=== PATIENT | female | born 1970 | race Caucasian/White ===

== ENCOUNTER 2017-07-19 18:34 | Inpatient (IN) | payer OTHER ==
[2017-07-19] MEDS ORDERED: Pantoprazole 80 MG in Sodium Chloride 0.9% 100 ML IV STA (19:14)
--- NOTE | 2017-07-19 19:14 | C.PDOC ---
History Of Present Illness Patient was sent in by PMD for abnormal blood work showing a a hemoglobin of 7. Denies chest pain, palpitations, SOB, or dark stools. Does state that she has had heavy menstrual flows. No cp, no palpitations, speaking in complete sentences Time Seen by Provider: 07/19/17 19:14 Chief Complaint (Nursing): Abnormal Labs History Per: Patient History/Exam Limitations: no limitations Onset/Duration Of Symptoms: Days Current Symptoms Are (Timing): Still Present Severity: Mild Pain Scale Rating Of: 3 Reports Recently: Treated By A Physician Recent travel outside of the [place]: No Additional History Per: Patient Past Medical History Reviewed: Historical Data, Nursing Documentation, Vital Signs Vital Signs: Last Vital Signs Temp 98.6 F 07/19/17 20:55 Pulse 87 07/19/17 18:45 Resp 18 07/19/17 18:45 BP 126/71 07/19/17 20:55 Pulse Ox 100 07/19/17 21:02 - Medical History PMH: Anemia Surgical History: No Surg Hx Family History: States: No Known Family Hx - Social History Hx Alcohol Use: No Hx Substance Use: No - Immunization History Hx Tetanus Toxoid Vaccination: No Hx Influenza Vaccination: No Hx Pneumococcal Vaccination: No Review Of Systems Constitutional: Negative for: Fever, Chills Eyes: Positive for: Other (pale) Cardiovascular: Negative for: Chest Pain, Palpitations Respiratory: Negative for: Shortness of Breath Gastrointestinal: Negative for: Nausea, Vomiting, Abdominal Pain, Other (Dark stools) Genitourinary: Positive for: Vaginal Bleeding (heavy, but not now) Musculoskeletal: Negative for: Back Pain Skin: Negative for: Rash Neurological: Negative for: Weakness Psych: Negative for: Anxiety Physical Exam - Physical Exam Appears: Non-toxic Skin: Warm, Dry, Pale Head: Normacephalic Eye(s): bilateral: Normal Inspection (pale) Oral Mucosa: Moist Neck: Supple Chest: Symmetrical Cardiovascular: Rhythm Regular Respiratory: No Rales, No Rhonchi, No Wheezing Gastrointestinal/Abdominal: Soft, No Tenderness Back: Normal Inspection Extremity: Normal ROM Extremity: Bilateral: Atraumatic, Normal ROM Pulses: Left Dorsalis Pedis: Normal, Right Dorsalis Pedis: Normal Neurological/Psych: Oriented x3, Normal Speech, Normal Cognition Gait: Steady ED Course And Treatment - Laboratory Results Result Diagrams: 07/19/17 19:26 07/19/17 19:26 O2 Sat by Pulse Oximetry: 100 Progress Note: Blood work and urinalysis ordered. Protonix administered. Disposition Discussed With Dr.: Tom Weeks Comment: accepted the pt on his service and took over the care at 10:35 PM Counseled Patient/Family Regarding: Studies Performed, Diagnosis - Disposition Disposition: HOSPITALIZED Disposition Time: 19:14 Condition: FAIR Forms: [facility] ([place]) - POA Present On Arrival: None - Clinical Impression Clinical Impression: Severe anemia, Menometrorrhagia - Scribe Statement The provider has reviewed the documentation as recorded by the Scribe David Martinez All medical record entries made by the Scribe were at my direction and personally dictated by me. I have reviewed the chart and agree that the record accurately reflects my personal performance of the history, physical exam, medical decision making, and the department course for this patient. I have also personally directed, reviewed, and agree with the discharge instructions and disposition. Decision To Admit - Pt Status Changed To: Hospital Disposition Of: Inpatient - Admit Certification Admit to Inpatient:: After my assessment, the patient will require hospitalization for at least two midnights. This is because of the severity of symptoms shown, intensity of services needed, and/or the medical risk in this patient being treated as an outpatient. - InPatient: Physician Admission Certification: I certify that this patient requires 2 or more midnights of care for the following reason:: After my assessment, the patient will require hospitalization for at least two midnights. This is because of the severity of symptoms shown, intensity of services needed, and/or the medical risk in this patient being treated as an outpatient. - . Bed Request Type: Regular Admitting Physician: Tom Weeks Patient Diagnosis: Severe anemia, Menometrorrhagia
[2017-07-19 19:35] LABS: INR 1.1
[2017-07-19 19:44] LABS: ALB/GLOB RATIO 1.5 (1.0-2.1); ALKALINE PHOSPHATASE 37 U/L (38-126); ALT/SGPT 35 U/L (9-52); AST/SGOT 22 U/L (14-36); BILIRUBIN,TOTAL 0.5 mg/dL (0.2-1.3); BLOOD UREA NITROGEN 9 mg/dL (7-17); CALCIUM 9.5 mg/dl (8.6-10.4); CARBON DIOXIDE 29 mmol/L (22-30); CHLORIDE 105 mmol/L (98-107); GFR AFRICAN-AMERICAN > 60; GLUCOSE,RANDOM 110 mg/dL (65-105); POTASSIUM 4.3 mmol/L (3.6-5.2); SODIUM 141 mmol/L (132-148); TOTAL PROTEIN 7.2 g/dL (6.3-8.3)
[2017-07-19 19:59] LABS: EOS # 0.1 K/uL (0.0-0.7); EOS % 1.3 % (0.0-4.0); MONO # 0.6 K/uL (0.0-0.8)
[2017-07-19 20:04] LABS: BASO % 0.9 % (0.0-2.0); LYMPH # 1.8 K/uL (1.0-4.3); LYMPH % 33.1 % (20.0-40.0); MEAN CELL VOLUME 59.2 fL (81.0-99.0); MEAN CORPUSCULAR HEMOGLOBIN 16.4 pg (27.0-31.0); MEAN CORPUSCULAR HGB CONC 27.6 g/dL (33.0-37.0); MEAN PLATELET VOLUME 9.8 fL (7.2-11.7); MONO % 11.5 % (0.0-10.0); NRBC % 0.2 % (0.0-2.0); RED CELL DISTRIBUTION WIDTH 21.3 % (11.5-14.5); WHITE BLOOD COUNT 5.4 K/uL (4.8-10.8)
[2017-07-19 20:06] LABS: HEMATOCRIT 25.8 % (34.0-47.0)
[2017-07-19 20:09] LABS: RBC URINE 1 /hpf (0-3); URINE BACTERIA RARE (<OCC); URINE BILIRUBIN NEGATIVE (NEGATIVE); URINE BLOOD NEGATIVE (NEGATIVE); URINE COLOR Straw (YELLOW); URINE GLUCOSE (UA) NORMAL (Normal); URINE KETONE NEGATIVE (NEGATIVE); URINE PROTEIN NEGATIVE (NEGATIVE); URINE UROBILINOGEN NORMAL mg/dL (0.2-1.0); WBC URINE 1 /hpf (0-5)
[2017-07-19 20:11] LABS: URINE LEUKOCYTE ESTERASE TRACE Leu/uL (Negative)
[2017-07-19] MEDS ORDERED: Lactated Ringer's 1,000 ML IV ONE (20:19)
[2017-07-19] MEDS ORDERED: Lactated Ringer's 1,000 ML ONE (20:28)
[2017-07-19 20:44] LABS: IRON 13 ug/dL (37-170)
--- NOTE | 2017-07-19 22:03 | US ---
EXAM: US Pelvis Complete, Transabdominal CLINICAL HISTORY: 47 years old, female; Condition or disease; Other: Menometrorrhagia TECHNIQUE: Real-time transabdominal pelvic ultrasound (complete) with image documentation. COMPARISON: No relevant prior studies available. FINDINGS: Uterus/cervix: Uterus measures 10.3 x 7.5 x 7.2 cm in size. Heterogeneous uterus. Few uterine masses, largest measuring 3.6 x 2.9 x 4.3 cm. Endometrium: 1.1 cm in thickness. Right ovary: 2.3 x 3.0 x 1.4 cm in size. No mass. Normal flow. Left ovary: 2.8 x 1.8 x 2.0 cm in size. No mass. Normal flow. Free fluid: Trace free fluid within pelvis. Bladder: Unremarkable as visualized. IMPRESSION: 1. Probable fibroid uterus. EXAM: US Pelvis, Transvaginal CLINICAL HISTORY: 47 years old, female; Condition or disease; Other: Menometrorrhagia TECHNIQUE: Real-time transvaginal pelvic ultrasound (complete) with image documentation. Transvaginal imaging was used for better evaluation of the endometrium and adnexa. COMPARISON: No relevant prior studies available. FINDINGS: Uterus/cervix: Uterus measures 10.3 x 7.5 x 7.2 cm in size. Heterogeneous uterus. Few uterine masses, largest measuring 3.6 x 2.9 x 4.3 cm. Endometrium: 1.1 cm in thickness. Right ovary: 2.3 x 3.0 x 1.4 cm in size. No mass. Normal flow. Left ovary: 2.8 x 1.8 x 2.0 cm in size. No mass. Normal flow. Free fluid: Trace free fluid within pelvis. Bladder: Empty bladder which cannot be evaluated with this probe. IMPRESSION: 1. Probable fibroid uterus.
--- NOTE | 2017-07-20 13:19 | CP.PCM.HP ---
History of Present Illness - History of Present Illness History of Present Illness: Patient was sent in by PMD for abnormal blood work showing a a hemoglobin of 7. Denies chest pain, palpitations, SOB, or dark stools. Does state that she has had heavy menstrual flows. NO SPECIFIC PAST HISTORY Present on Admission - Present on Admission Any Indicators Present on Admission: No Review of Systems - Constitutional Constitutional: Fatigue, Malaise. absent: As Per HPI, Anorexia, Chills, Daytime Sleepiness, Excessive Sweating, Fever, Frequent Falls, Headache, Increased Appetite, Lethargy, Night Sweats, Snoring, Sleep Apnea, Weight Gain, Weight Loss, Weakness, Other - EENT Eyes: absent: As Per HPI, Blind Spots, Blurred Vision, Change in Vision, Decreased Night Vision, Diplopia, Discharge, Dry Eye, Exophthalmos, Floaters, Irritation, Itchy Eyes, Loss of Peripheral Vision, Pain, Photophobia, Requires Corrective Lenses, Sees Flashes, Spots in Vision, Tunnel Vision, Other Visual Disturbances, Loss of Vision, Other Ears: absent: As Per HPI, Decreased Hearing, Ear Discharge, Ear Pain, Tinnitus, Abnormal Hearing, Disequilibrium, Dizziness, Other Nose/Mouth/Throat: absent: As Per HPI, Epistaxis, Nasal Congestion, Nasal Discharge, Nasal Obstruction, Nasal Trauma, Nose Pain, Post Nasal Drip, Sinus Pain, Sinus Pressure, Bleeding Gums, Change in Voice, Dental Pain, Dry Mouth, Dysphagia, Halitosis, Hoarsness, Lip Swelling, Mouth Lesions, Mouth Pain, Odynophagia, Sore Throat, Throat Swelling, Tongue Swelling, Facial Pain, Neck Pain, Neck Mass, Other - Breasts Breasts: absent: As Per HPI, Change in Shape, Mass, Pain, Nipple Discharge, Nipple Inversion, Skin Changes, Swelling, Other - Cardiovascular Cardiovascular: Lightheadedness. absent: As Per HPI, Acrocyanosis, Chest Pain, Chest Pain at Rest, Chest Pain with Activity, Claudication, Diaphoresis, Dyspnea , Dyspnea on Exertion, Edema, Irregular Heart Rhythm, Pain Radiating to Arm/Neck /Jaw, Leg Edema, Leg Ulcers, Orthopnea, Palpitations, Paroxysmal Nocturnal Dyspnea, Pedal Edema, Radiating Pain, Rapid Heart Rate, Slow Heart Rate, Syncope , Other - Respiratory Respiratory: absent: As Per HPI, Cough, Dyspnea, Hemoptysis, Dyspnea on Exertion , Wheezing, Snoring, Stridor, Pain on Inspiration, Chest Congestion, Excessive Mucous Production, Change in Mucous Color, Pain with Coughing, Other - Gastrointestinal Gastrointestinal: absent: As Per HPI, Abdominal Pain, Belching, Bloating, Change in Bowel Habits, Change in Stool Character, Coffee Ground Emesis, Constipation, Cramping, Diarrhea, Dyspepsia, Dysphagia, Early Satiety, Excessive Flatus, Fecal Incontinence, Heartburn, Hematemesis, Hematochezia, Loose Stools, Melena, Nausea, Odynophagia, Temesmus, Vomiting, Other - Genitourinary Genitourinary: absent: As Per HPI, Change in Urinary Stream, Difficulty Urinating, Dysuria, Flank Pain, Hematuria, Pyuria, Nocturia, Urinary Incontinence, Urinary Frequency, Urinary Hesitance, Urinary Urgency, Voiding Freq/Small Amts, Freq UTI, Hx Renal/Bladder Calculi, Hx /Renal Surgery, Bladder Distension, Other - Reproductive: Female Reproductive:Female: Menses >/= 8 Days, Abnormal Vaginal Bleeding, Dysmenorrhea - Menstruation Menstruation: Heavy Menses, Abnormal Vaginal Bleeding - Integumentary Integumentary: absent: As Per HPI, Acne, Alopecia, Bleeding Lesions, Change in Hair, Change in Nails, Change in Pigmentation, Changing Lesions, Dry Skin, Erythema, Furuncle, Hirsutism, Lesions, New Lesions, Non-Healing Lesions, Photosensitivity, Pruritus, Rash, Skin Pain, Skin Ulcer, Sores, Striae, Swelling , Unusual Bruising, Wounds, Jaundice, Other - Neurological Neurological: Dizziness, Vertigo. absent: As Per HPI, Abnormal Gait, Abnormal Hearing, Abnormal Movements, Abnormal Speech, Behavioral Changes, Burning Sensations, Confusion, Convulsions, Disequilibrium, Numbness, Focal Weakness, Frequent Falls, Headaches, Lack of Coordination, Loss of Vision, Memory Loss, Paresthesias, Radicular Pain, Restless Legs, Sensory Deficit, Syncope, Tingling , Tremor, Weakness, Other Visual Disturbances, Other - Psychiatric Psychiatric: absent: As Per HPI, Abnormal Sleep Pattern, Anhedonia, Anxiety, Auditory Hallucinations, Behavioral Changes, Change in Appetite, Change in Libido, Confusion, Depression, Difficulty Concentrating, Hallucinations, Homicidal Ideation, Hopelessness, Irritability, Memory Loss, Mood Swings, Panic Attacks, Paranoia, Suicidal Ideation, Visual Hallucinations, Tactile Hallucinations, Other - Endocrine Endocrine: absent: As Per HPI, Change in Body Appearance, Change in Libido, Cold Intolorance, Deepening of Voice, Excessive Sweating, Fatigue, Flushing, Heat Intolorance, Increase in Ring/Shoe/Hat Size, Palpitations, Polydipsia, Polyphagia, Polyuria, Other - Hematologic/Lymphatic Hematologic: absent: As Per HPI, Easy Bleeding, Easy Bruising, Lymphadenopathy, Other Past Patient History - Past Medical History & Family History Past Medical History?: No - Past Social History Smoking Status: Never Smoked - CARDIAC Hx Cardiac Disorders: No - PULMONARY Hx Respiratory Disorders: No - NEUROLOGICAL Hx Neurological Disorder: No - HEENT Hx HEENT Problems: No - RENAL Hx Chronic Kidney Disease: No - ENDOCRINE/METABOLIC Hx Endocrine Disorders: No - HEMATOLOGICAL/ONCOLOGICAL Hx Anemia: Yes - INTEGUMENTARY Hx Dermatological Problems: No - MUSCULOSKELETAL/RHEUMATOLOGICAL Hx Falls: No - GASTROINTESTINAL Hx Gastrointestinal Disorders: No - GENITOURINARY/GYNECOLOGICAL Hx Genitourinary Disorders: No - PSYCHIATRIC Hx Substance Use: No - SURGICAL HISTORY Hx Surgeries: Yes Hx Section: Yes (X2) Other/Comment: RIGHT ARM TENDON/SHOULDER REPAIR 2008 - ANESTHESIA Hx Anesthesia: Yes Hx Anesthesia Reactions: No Hx Malignant Hyperthermia: No Has any member of the family had a problem w/ anesthesia?: No Meds Allergies/Adverse Reactions: Allergies Allergy/AdvReac Type Severity Reaction Status Date / Time No Known Allergies Allergy Verified 07/19/17 18:47 Physical Exam - Constitutional Appears: Well - Head Exam Head Exam: ATRAUMATIC, NORMAL INSPECTION, NORMOCEPHALIC - Eye Exam Eye Exam: EOMI, Normal appearance, PERRL Additional comments: PALLOR - ENT Exam ENT Exam: Mucous Membranes Moist, Normal Exam - Neck Exam Neck exam: Positive for: Normal Inspection - Respiratory Exam Respiratory Exam: Clear to Auscultation Bilateral, NORMAL BREATHING PATTERN - Cardiovascular Exam Cardiovascular Exam: REGULAR RHYTHM, +S1, +S2. absent: Systolic Murmur - GI/Abdominal Exam GI & Abdominal Exam: Normal Bowel Sounds, Soft. absent: Tenderness - Rectal Exam Rectal Exam: Deferred - Extremities Exam Extremities exam: Positive for: normal inspection. Negative for: calf tenderness, tenderness - Back Exam Back exam: NORMAL INSPECTION - Psychiatric Exam Psychiatric exam: Normal Affect, Normal Mood - Skin Skin Exam: Dry, Intact, Pallor, Warm Results - Vital Signs Recent Vital Signs: Last Vital Signs Temp 97.7 F 07/20/17 07:37 Pulse 74 07/20/17 07:37 Resp 20 07/20/17 07:37 BP 105/66 07/20/17 07:37 Pulse Ox 99 07/20/17 03:30 - Labs Result Diagrams: 07/19/17 19:26 07/19/17 19:26 Labs: Laboratory Results - last 24 hr 07/19/17 07/19/17 07/19/17 19:26 19:26 19:26 WBC 5.4 RBC 4.44 Hgb 7.3 L Hct 25.8 L MCV 59.2 L MCH 16.4 L MCHC 27.6 L RDW 21.3 H Plt Count 215 MPV 9.8 Neut % (Auto) 53.2 Lymph % (Auto) 33.1 [place] % (Auto) 11.5 H Eos % (Auto) 1.3 Baso % (Auto) 0.9 Neut # 2.8 Lymph # 1.8 [place] # 0.6 Eos # 0.1 Baso # 0.0 Differential Comment PT 12.1 INR 1.1 APTT 28 Sodium 141 Potassium 4.3 Chloride 105 Carbon Dioxide 29 Anion Gap 11 BUN 9 Creatinine 0.6 L Est GFR ( Amer) > 60 Est GFR (Non-Af Amer) > 60 Random Glucose 110 H Calcium 9.5 Iron TIBC % Saturation Ferritin Total Bilirubin 0.5 AST 22 ALT 35 Alkaline Phosphatase 37 L Total Protein 7.2 Albumin 4.3 Globulin 2.9 Albumin/Globulin Ratio 1.5 Lipase 144 Urine Color Urine Clarity Urine pH Ur Specific [place] Urine Protein Urine Glucose (UA) Urine Ketones Urine Blood Urine Nitrate Urine Bilirubin Urine Urobilinogen Ur Leukocyte Esterase Urine WBC (Auto) Urine RBC (Auto) Ur Squamous Epith Cells Urine Bacteria Urine HCG, Qual Blood Type Blood Type Confirm Antibody Screen 07/19/17 07/19/17 07/19/17 19:26 20:00 20:29 WBC RBC Hgb Hct MCV MCH MCHC RDW Plt Count MPV Neut % (Auto) Lymph % (Auto) [place] % (Auto) Eos % (Auto) Baso % (Auto) Neut # Lymph # [place] # Eos # Baso # Differential Comment PT INR APTT Sodium Potassium Chloride Carbon Dioxide Anion Gap BUN Creatinine Est GFR ( Amer) Est GFR (Non-Af Amer) Random Glucose Calcium Iron 13 L TIBC 486 H % Saturation 3 L Ferritin Total Bilirubin AST ALT Alkaline Phosphatase Total Protein Albumin Globulin Albumin/Globulin Ratio Lipase Urine Color Straw Urine Clarity Clear Urine pH 8.0 Ur Specific [place] 1.014 Urine Protein Negative Urine Glucose (UA) Normal Urine Ketones Negative Urine Blood Negative Urine Nitrate Negative Urine Bilirubin Negative Urine Urobilinogen Normal Ur Leukocyte Esterase Trace H Urine WBC (Auto) 1 Urine RBC (Auto) 1 Ur Squamous Epith Cells 4 Urine Bacteria Rare Urine HCG, Qual Negative Blood Type A NEGATIVE Blood Type Confirm A NEGATIVE Antibody Screen Negative 07/19/17 20:29 WBC RBC Hgb Hct MCV MCH MCHC RDW Plt Count MPV Neut % (Auto) Lymph % (Auto) [place] % (Auto) Eos % (Auto) Baso % (Auto) Neut # Lymph # [place] # Eos # Baso # Differential Comment PT INR APTT Sodium Potassium Chloride Carbon Dioxide Anion Gap BUN Creatinine Est GFR ( Amer) Est GFR (Non-Af Amer) Random Glucose Calcium Iron TIBC % Saturation Ferritin 2.8 Total Bilirubin AST ALT Alkaline Phosphatase Total Protein Albumin Globulin Albumin/Globulin Ratio Lipase Urine Color Urine Clarity Urine pH Ur Specific [place] Urine Protein Urine Glucose (UA) Urine Ketones Urine Blood Urine Nitrate Urine Bilirubin Urine Urobilinogen Ur Leukocyte Esterase Urine WBC (Auto) Urine RBC (Auto) Ur Squamous Epith Cells Urine Bacteria Urine HCG, Qual Blood Type Blood Type Confirm Antibody Screen Assessment & Plan (1) Menometrorrhagia Status: Acute (2) Severe anemia Status: Acute Comment: TRANSFUSE 2 PC AND GI W/U
[2017-07-20 14:16] LABS: HEMATOCRIT 29.7 % (34.0-47.0); MEAN CORPUSCULAR HGB CONC 29.8 g/dL (33.0-37.0); RED CELL DISTRIBUTION WIDTH 25.8 % (11.5-14.5); WHITE BLOOD COUNT 5.7 K/uL (4.8-10.8)
[2017-07-20 14:17] LABS: MEAN CELL VOLUME 63.6 fL (81.0-99.0)
[2017-07-21] MEDS: Ferric Sodium Gluconat Complex 62.5 mg/5 ml Vial IVPB SCH (12:57)
--- NOTE | 2017-07-21 13:28 | CP.PCM.PN ---
Subjective - Date & Time of Evaluation Date of Evaluation: 07/21/17 Time of Evaluation: 13:26 - Subjective Subjective: CHIEF COMPLAINTS TODAY : WEAK ROS. HEENT : N. Resp : No cough, wheezing ,pleuritic CP ,or hemoptysis Cardio : No anginal CP, PND, orthopnea, palpitation GI : No abd.pain, n/v ,diarrhea or GI bleeding . DENTAL PRACTITIONER : No headache, vertigo, focal deficit. Musculoskel : No joint swelling , Derm : No rash Psych : Normal affect. Ext : No swelling ,calf pain PE. Pt. is alert awake in no distress. V.S As noted in the chart Head ,ear nose,throat and eyes : Normal. Neck : Supple with normal carotids. Lungs: Clear air entry. Heart : S1 & S2 normal with S4. No murmur. Abd : Soft non tender with normal bowel sounds. Neuro : Moves all ext. with no localized deficit. Ext : No edema with intact pulses.Non tender calves Derm : No rashes or decubitus ulcer. LABS/RADIOLOGY: H/H 8.5 AFTER 2 UNITS OF PC LOW FERRITIN AND IRON ASSESSMENT/PLAN : IN IRON FOR 5 DAYS Objective - Vital Signs/Intake and Output Vital Signs (last 24 hours): Temp Pulse Resp BP Pulse Ox 98.4 F 68 20 116/71 100 07/21/17 07:44 07/21/17 07:44 07/21/17 07:44 07/21/17 07:44 07/21/17 07:44 - Medications Medications: Current Medications Ferric Sodium Gluconate Complex (Ferrlecit) 125 mg IVPB DAILY [facility] Stop: 07/29/17 12:01 Last Admin: 07/21/17 12:57 Dose: 125 mg Pneumococcal Polyvalent Vaccine (Pneumovax 23 Vaccine) 0.5 ml IM .ONCE ONE Stop: 07/22/17 10:01 - Labs Labs: 07/20/17 14:06 07/19/17 19:26 PT 12.1 SECONDS (9.7-12.2) 07/19/17 19:26 INR 1.1 07/19/17 19:26 APTT 28 SECONDS (21-34) 07/19/17 19:26 Assessment and Plan (1) Menometrorrhagia Status: Acute (2) Severe anemia Status: Acute
[2017-07-22 08:33] LABS: EOS # 0.1 K/uL (0.0-0.7); EOS % 1.1 % (0.0-4.0); LYMPH % 13.5 % (20.0-40.0)
[2017-07-22 08:50] LABS: BASO # 0.1 K/uL (0.0-0.2); BASO % 0.7 % (0.0-2.0); HEMATOCRIT 33.5 % (34.0-47.0); LYMPH # 1.1 K/uL (1.0-4.3); MEAN CELL VOLUME 64.3 fL (81.0-99.0); MEAN CORPUSCULAR HEMOGLOBIN 19.5 pg (27.0-31.0); MEAN CORPUSCULAR HGB CONC 30.3 g/dL (33.0-37.0); MEAN PLATELET VOLUME 9.6 fL (7.2-11.7); MONO # 0.8 K/uL (0.0-0.8); MONO % 9.5 % (0.0-10.0); NRBC % 0.1 % (0.0-2.0); WHITE BLOOD COUNT 8.3 K/uL (4.8-10.8)
[2017-07-22] MEDS ORDERED: Pneumococcal 23-Valent Vaccine IM ONE (10:00)
[2017-07-22] MEDS ORDERED: Influenza Vaccine 60 mcg/0.5 mL SYR (4YR UP) IM ONE (10:15)
[2017-07-22] MEDS: Ferric Sodium Gluconat Complex 62.5 mg/5 ml Vial IVPB SCH (10:58)
--- NOTE | 2017-07-22 13:34 | CP.PCM.PN ---
Subjective - Date & Time of Evaluation Date of Evaluation: 07/22/17 Time of Evaluation: 13:33 - Subjective Subjective: CHIEF COMPLAINTS TODAY : WEAK HG 10.2 ROS. HEENT : N. Resp : No cough, wheezing ,pleuritic CP ,or hemoptysis Cardio : No anginal CP, PND, orthopnea, palpitation GI : No abd.pain, n/v ,diarrhea or GI bleeding . DISTRICT ADMINISTRATIVE ASSISTANT : No headache, vertigo, focal deficit. Musculoskel : No joint swelling , Derm : No rash Psych : Normal affect. Ext : No swelling ,calf pain PE. Pt. is alert awake in no distress. V.S As noted in the chart Head ,ear nose,throat and eyes : Normal. Neck : Supple with normal carotids. Lungs: Clear air entry. Heart : S1 & S2 normal with S4. No murmur. Abd : Soft non tender with normal bowel sounds. Neuro : Moves all ext. with no localized deficit. Ext : No edema with intact pulses.Non tender calves Derm : No rashes or decubitus ulcer. LABS/RADIOLOGY: H/H 8.5 AFTER 2 UNITS OF PC LOW FERRITIN AND IRON ASSESSMENT/PLAN : IN IRON FOR 5 DAYS Objective - Vital Signs/Intake and Output Vital Signs (last 24 hours): Temp Pulse Resp BP Pulse Ox 98.4 F 78 20 132/84 100 07/22/17 08:07 07/22/17 08:07 07/22/17 08:07 07/22/17 08:07 07/22/17 08:07 Intake and Output: 07/22/17 07/22/17 11:59 23:59 Intake Total 200 Balance 200 - Medications Medications: Current Medications Ferric Sodium Gluconate Complex (Ferrlecit) 125 mg IVPB DAILY [facility] Stop: 07/29/17 12:01 Last Admin: 07/22/17 10:58 Dose: 125 mg - Labs Labs: 07/22/17 08:16 07/19/17 19:26 PT 12.1 SECONDS (9.7-12.2) 07/19/17 19:26 INR 1.1 07/19/17 19:26 APTT 28 SECONDS (21-34) 07/19/17 19:26 Assessment and Plan (1) Menometrorrhagia Status: Acute (2) Severe anemia Status: Acute
[2017-07-23 07:41] VITALS: RESP 20
[2017-07-23] MEDS: Ferric Sodium Gluconat Complex 62.5 mg/5 ml Vial IVPB SCH (10:50)
--- NOTE | 2017-07-23 13:46 | CP.PCM.PN ---
Subjective - Date & Time of Evaluation Date of Evaluation: 07/23/17 Time of Evaluation: 13:46 - Subjective Subjective: CHIEF COMPLAINTS TODAY : WEAK HG 10.2 ROS. HEENT : N. Resp : No cough, wheezing ,pleuritic CP ,or hemoptysis Cardio : No anginal CP, PND, orthopnea, palpitation GI : No abd.pain, n/v ,diarrhea or GI bleeding . EMBLEM MAKER : No headache, vertigo, focal deficit. Musculoskel : No joint swelling , Derm : No rash Psych : Normal affect. Ext : No swelling ,calf pain PE. Pt. is alert awake in no distress. V.S As noted in the chart Head ,ear nose,throat and eyes : Normal. Neck : Supple with normal carotids. Lungs: Clear air entry. Heart : S1 & S2 normal with S4. No murmur. Abd : Soft non tender with normal bowel sounds. Neuro : Moves all ext. with no localized deficit. Ext : No edema with intact pulses.Non tender calves Derm : No rashes or decubitus ulcer. LABS/RADIOLOGY: H/H 8.5 AFTER 2 UNITS OF PC LOW FERRITIN AND IRON ASSESSMENT/PLAN : IN IRON FOR 5 DAYS Objective - Vital Signs/Intake and Output Vital Signs (last 24 hours): Temp Pulse Resp BP Pulse Ox 98.8 F 69 20 121/75 100 07/23/17 07:39 07/23/17 07:39 07/23/17 07:39 07/23/17 07:39 07/23/17 07:39 Intake and Output: 07/23/17 07/23/17 11:59 23:59 Intake Total 150 Balance 150 - Medications Medications: Current Medications Ferric Sodium Gluconate Complex (Ferrlecit) 125 mg IVPB DAILY [facility] Stop: 07/29/17 12:01 Last Admin: 07/23/17 10:50 Dose: 125 mg - Labs Labs: 07/22/17 08:16 07/19/17 19:26 PT 12.1 SECONDS (9.7-12.2) 07/19/17 19:26 INR 1.1 07/19/17 19:26 APTT 28 SECONDS (21-34) 07/19/17 19:26 Assessment and Plan (1) Menometrorrhagia Status: Acute (2) Severe anemia Status: Acute
[2017-07-23 23:23] VITALS: PULSE 74
[2017-07-24 08:10] VITALS: BP 102/64; TEMP 98.1; O2SAT 100
[2017-07-24] MEDS: Ferric Sodium Gluconat Complex 62.5 mg/5 ml Vial IVPB SCH (11:09)
--- NOTE | 2017-07-24 12:09 | CP.PCM.PN ---
Subjective - Date & Time of Evaluation Date of Evaluation: 07/24/17 Time of Evaluation: 12:09 - Subjective Subjective: Alert, and oriented x3, NAD. Right anticubital area with swelling and minimal redness. Able to bent, no acute pain Objective - Vital Signs/Intake and Output Vital Signs (last 24 hours): Temp Pulse Resp BP Pulse Ox 98.1 F 74 20 102/64 100 07/24/17 08:08 07/24/17 08:08 07/24/17 08:08 07/24/17 08:08 07/24/17 08:08 Intake and Output: 07/24/17 07/24/17 06:59 18:59 Intake Total 250 Balance 250 - Medications Medications: Current Medications Ferric Sodium Gluconate Complex (Ferrlecit) 125 mg IVPB DAILY [facility] Stop: 07/29/17 12:01 Last Admin: 07/24/17 11:09 Dose: 125 mg - Labs Labs: 07/22/17 08:16 07/19/17 19:26 PT 12.1 SECONDS (9.7-12.2) 07/19/17 19:26 INR 1.1 07/19/17 19:26 APTT 28 SECONDS (21-34) 07/19/17 19:26 Assessment and Plan - Assessment and Plan (Free Text) Assessment: Patient is seen and examined. Alert and orientedx3, NAD. Right anticubital area swollen from iv infiltrate, able to bent the arm. Discussed with DR Weeks, plan to discharge home today. Advised to apply warm compresses for 15-20 minutes q 4 hourly today and tomorrow and follow up with DR Weeks on Wednesday.
--- NOTE | 2017-07-24 14:24 | CP.PCM.DIS ---
Provider - Provider Date of Admission: 07/19/17 22:44 Attending physician: Tom Weeks MD Time Spent in preparation of Discharge (in minutes): 35 Diagnosis - Discharge Diagnosis (1) Menometrorrhagia Status: Acute (2) Severe anemia Status: Acute Hospital Course - Lab Results Lab Results: Most Recent Lab Values WBC 8.3 K/uL (4.8-10.8) 07/22/17 08:16 RBC 5.21 Mil/uL (3.80-5.20) H 07/22/17 08:16 Hgb 10.2 g/dL (11.0-16.0) L 07/22/17 08:16 Hct 33.5 % (34.0-47.0) L 07/22/17 08:16 MCV 64.3 fL (81.0-99.0) L 07/22/17 08:16 MCH 19.5 pg (27.0-31.0) L 07/22/17 08:16 MCHC 30.3 g/dL (33.0-37.0) L 07/22/17 08:16 RDW 27.0 % (11.5-14.5) H 07/22/17 08:16 Plt Count 174 K/uL (130-400) 07/22/17 08:16 MPV 9.6 fL (7.2-11.7) 07/22/17 08:16 Neut % (Auto) 75.2 % (50.0-75.0) H 07/22/17 08:16 Lymph % (Auto) 13.5 % (20.0-40.0) L 07/22/17 08:16 Emmons % (Auto) 9.5 % (0.0-10.0) 07/22/17 08:16 Eos % (Auto) 1.1 % (0.0-4.0) 07/22/17 08:16 Baso % (Auto) 0.7 % (0.0-2.0) 07/22/17 08:16 Neut # 6.2 K/uL (1.8-7.0) 07/22/17 08:16 Lymph # 1.1 K/uL (1.0-4.3) 07/22/17 08:16 Emmons # 0.8 K/uL (0.0-0.8) 07/22/17 08:16 Eos # 0.1 K/uL (0.0-0.7) 07/22/17 08:16 Baso # 0.1 K/uL (0.0-0.2) 07/22/17 08:16 Differential Comment 07/22/17 08:16 PT 12.1 SECONDS (9.7-12.2) 07/19/17 19:26 INR 1.1 07/19/17 19:26 APTT 28 SECONDS (21-34) 07/19/17 19:26 Sodium 141 mmol/L (132-148) 07/19/17 19:26 Potassium 4.3 mmol/L (3.6-5.2) 07/19/17 19:26 Chloride 105 mmol/L (98-107) 07/19/17 19:26 Carbon Dioxide 29 mmol/L (22-30) 07/19/17 19:26 Anion Gap 11 (10-20) 07/19/17 19:26 BUN 9 mg/dL (7-17) 07/19/17 19:26 Creatinine 0.6 mg/dL (0.7-1.2) L 07/19/17 19:26 Est GFR ( Amer) > 60 07/19/17 19:26 Est GFR (Non-Af Amer) > 60 07/19/17 19:26 Random Glucose 110 mg/dL (65-105) H 07/19/17 19:26 Calcium 9.5 mg/dl (8.6-10.4) 07/19/17 19:26 Iron 13 ug/dL (37-170) L 07/19/17 20:29 TIBC 486 ug/dL (250-450) H 07/19/17 20:29 % Saturation 3 (20-55) L 07/19/17 20:29 Ferritin 2.8 ng/mL 07/19/17 20:29 Total Bilirubin 0.5 mg/dL (0.2-1.3) 07/19/17 19:26 AST 22 U/L (14-36) 07/19/17 19:26 ALT 35 U/L (9-52) 07/19/17 19:26 Alkaline Phosphatase 37 U/L (38-126) L 07/19/17 19:26 Total Protein 7.2 g/dL (6.3-8.3) 07/19/17 19: Albumin 4.3 g/dL (3.5-5.0) 07/19/17 19: Globulin 2.9 gm/dL (2.2-3.9) 07/19/17 19: Albumin/Globulin Ratio 1.5 (1.0-2.1) 07/19/17 19: Lipase 144 U/L (23-300) 07/19/17 19: Urine Color Straw (YELLOW) 07/19/17 20:00 Urine Clarity Clear (Clear) 07/19/17 20:00 Urine pH 8.0 (5.0-8.0) 07/19/17 20:00 Ur Specific [place] 1.014 (1.003-1.030) 07/19/17 20:00 Urine Protein Negative mg/dL (NEGATIVE) 07/19/17 20:00 Urine Glucose (UA) Normal mg/dL (Normal) 07/19/17 20:00 Urine Ketones Negative mg/dL (NEGATIVE) 07/19/17 20:00 Urine Blood Negative (NEGATIVE) 07/19/17 20:00 Urine Nitrate Negative (NEGATIVE) 07/19/17 20:00 Urine Bilirubin Negative (NEGATIVE) 07/19/17 20:00 Urine Urobilinogen Normal mg/dL (0.2-1.0) 07/19/17 20:00 Ur Leukocyte Esterase Trace Trudy/uL (Negative) H 07/19/17 20:00 Urine WBC (Auto) 1 /hpf (0-5) 07/19/17 20:00 Urine RBC (Auto) 1 /hpf (0-3) 07/19/17 20:00 Ur Squamous Epith Cells 4 /hpf (0-5) 07/19/17 20:00 Urine Bacteria Rare (<OCC) 07/19/17 20:00 Urine HCG, Qual Negative (NEGATIVE) 07/19/17 20:00 Stool Occult Blood Negative (NEGATIVE) 07/23/17 18: Blood Type A NEGATIVE 07/19/17: Blood Type Confirm A NEGATIVE 07/19/17 Antibody Screen Negative 07/19/17: - Hospital Course Hospital Course: Patient was sent in by PMD for abnormal blood work showing a a hemoglobin of 7. Denies chest pain, palpitations, SOB, or dark stools. Does state that she has had heavy menstrual flows. NO SPECIFIC PAST HISTORY W/U SHOWED IRON DEF ANEMIA PT RECEIVED 2 UNITS OF PC AND 5 DAYS OF IRON THERAPY BY IV PT'S LAST HG WAS 10.2 GI W/U WAS NEG Discharge Exam - Head Exam Head Exam: ATRAUMATIC, NORMAL INSPECTION, NORMOCEPHALIC Discharge Plan - Discharge Medications Prescriptions: Ferrous Sulfate 325 mg PO DAILY #30 tablet - Follow Up Plan Condition: FAIR Disposition: HOME/ ROUTINE Instructions: Iron Supplements (By mouth), Iron Rich Diet (GEN), Iron Deficiency Anemia (GEN), Regular Diet (DC), Anemia (DC) Additional Instructions: Apply warm compresses to right anticubital area q 4 hourly for 20 minutes follow up in the office on Wednesday. Referrals: Tom Weeks MD [Staff Provider] -
== END 2017-07-24 14:30 | disposition home or self-care (01) | DRG 369 ==
LOC: C.ER 18:34 → C.9E 22:44 → C.3T 23:33
PROVIDERS: ADMIT Internal Medicine Cardiovascular Disease; ATTEND Internal Medicine Cardiovascular Disease
DX: N92.1 Excessive and frequent menstruation with irregular cycle (principal); D64.9 Anemia, unspecified

== ENCOUNTER 2017-12-29 09:13 | Day surgery (SDC) | payer OTHER ==
[2017-12-29] MEDS ORDERED: cefOXitin IV 1 gm in Dextrose 1 GM/50 ML BAG IVPB ONE (10:04)
[2017-12-29] MEDS ORDERED: Midazolam 2 MG/2 ML VIAL ONE (10:15)
[2017-12-29] MEDS ORDERED: Propofol 10 mg/ml Inj (20 ML) ONE (10:16)
[2017-12-29] MEDS ORDERED: ePHEDrine 50 mg/ml Inj ONE (10:33)
[2017-12-29] MEDS ORDERED: HYDROmorphone 0.5 mg/0.5 ml ISec IVP PRN (10:38)
--- NOTE | 2017-12-29 10:45 | PCM.SURG1 ---
Surgeon's Initial Post Op Note - Surgeon's Notes Surgeon: dr looney Boilermaking Supervisor: none Type of Anesthesia: General LMA Anesthesia Administered By: dr powell Pre-Operative Diagnosis: 47 yr with aub r/o polyp Operative Findings: see the op reprt Post-Operative Diagnosis: same Operation Performed: myasure d&c, hystescopy Specimen/Specimens Removed: ecc. emc. fibroid Estimated Blood Loss: EBL {In ML}: 20 Blood Products Given: N/A Drains Used: No Drains Post-Op Condition: Good Date of Surgery/Procedure: 12/29/17 Time of Surgery/Procedure: 11:00
[2017-12-29 12:47] VITALS: RESP 16
[2017-12-29 14:04] VITALS: BP 109/65; PULSE 69; TEMP 98; O2SAT 100
--- NOTE | 2018-01-04 08:08 | OP ---
PROCEDURE DATE: 12/29/2017 PREOPERATIVE DIAGNOSIS: A 47-year-old 2 with abnormal uterine bleeding, rule out polyp. POSTOPERATIVE DIAGNOSIS: A 47-year-old 2 with abnormal uterine bleeding, rule out polyp. SURGEON: Jose Gonzales MD. RAKE OPERATOR: None. TYPE OF ANESTHESIA: General. ANESTHESIOLOGIST: Dr. Acevedo. PROCEDURE PERFORMED: MyoSure, dilatation and curettage, cystoscopy. ESTIMATED BLOOD LOSS: 20 mL. SPECIMEN: ECC, EMC, fibroid. DESCRIPTION OF PROCEDURE: After informed consent was obtained, the patient was brought to the operating room, placed on the table where general anesthesia was given. Once the anesthesia was found to be adequate, the patient was prepped and draped in the normal sterile fashion. uterus 8 weeks' size. No pelvic or adnexal masses. Anterior lip of the cervix was grasped with a tenaculum, gentle dilatation of the cervix was done. fibroid found on the level of anterior wall of the uterus. Pictures were taken. After that, MyoSure was used to remove the submucosal fibroid was curettage was done and sent was done and sent to the pathology. ECC was done and sent to the pathology. . After that, tenaculum was removed. The patient tolerated the procedure well. Lap, sponge, and instrument counts were correct x2. Jose Gonzales MD
== END 2017-12-29 14:03 | disposition home or self-care (01) ==
LOC: C.SDS 09:13
PROVIDERS: ATTEND Obstetrics & Gynecology
DX: D25.0 Submucous leiomyoma of uterus (principal); N84.0 Polyp of corpus uteri; N92.1 Excessive and frequent menstruation with irregular cycle
CPT/HCPCS: 58561; 88305; J0694; J2001; J2250; J2704; J3010

== ENCOUNTER 2018-03-09 06:10 | Inpatient (IN) | payer OTHER ==
[2018-03-09] MEDS ORDERED: ceFAZolin IV 2 gm in Dextrose 2 GM/50 ML BAG IVPB ONE (08:32)
[2018-03-09] MEDS ORDERED: Bupivacaine 0.25% 20 ML INJ IJ ONE (08:32)
[2018-03-09] MEDS ORDERED: Lidocaine/Epinephrine 1% 1:100000 10 ML IJ ONE (08:32)
[2018-03-09] MEDS ORDERED: Midazolam 2 MG/2 ML VIAL ONE (08:37)
[2018-03-09] MEDS ORDERED: Propofol 10 mg/ml Inj (20 ML) ONE (08:37)
[2018-03-09] MEDS ORDERED: Bacitracin Ointment 30 GM TUBE ONE (08:47)
[2018-03-09] MEDS ORDERED: Rocuronium 10 mg/ml (5 ml) ONE (08:54)
[2018-03-09] MEDS ORDERED: Succinylcholine Chloride 20 mg/ml Syr (5 ml) IV ONE (08:54)
[2018-03-09] MEDS ORDERED: Neostigmine Methylsulfate 3mg/3ml Syringe IV ONE (10:13)
[2018-03-09] MEDS ORDERED: DiphenhydrAMINE 50 mg/ml Inj IVP PRN (11:02)
[2018-03-09] MEDS ORDERED: Naloxone 0.4 mg/ml Inj (Adult) IVP PRN (11:03)
[2018-03-09] MEDS ORDERED: Lactated Ringer's 1,000 ML IV SCH (11:15)
[2018-03-09] MEDS ORDERED: Oxycodone/Acetaminophen 5/325 mg Tab PO PRN (11:33)
[2018-03-09] MEDS: HYDROmorphone 0.5 mg/0.5 ml ISec IVP PRN ×2 (12:22→12:45)
[2018-03-09] MEDS ORDERED: Lactated Ringer's 1,000 ML IV ONE (13:00)
[2018-03-09] MEDS: Simethicone 80 mg Chewtab PO SCH ×3 (18:11→22:20)
[2018-03-10 06:34] LABS: HEMOGLOBIN 11.5 g/dL (11.0-16.0); MEAN CELL VOLUME 85.9 fL (81.0-99.0); MEAN CORPUSCULAR HEMOGLOBIN 28.4 pg (27.0-31.0); MEAN PLATELET VOLUME 10.9 fL (7.2-11.7); RBC 4.06 Mil/uL (3.80-5.20); RED CELL DISTRIBUTION WIDTH 17.3 % (11.5-14.5); WHITE BLOOD COUNT 10.1 K/uL (4.8-10.8)
--- NOTE | 2018-03-10 06:56 | CP.PCM.PN ---
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 Objective - Vital Signs/Intake and Output Vital Signs (last 24 hours): Temp Pulse Resp BP Pulse Ox 97.9 F 85 20 129/76 97 03/09/18 14:13 03/09/18 14:13 03/09/18 14:32 03/09/18 14:13 03/09/18 14:32 Intake and Output: 03/09/18 03/10/18 18:59 06:59 Intake Total 3175 500 Output Total 180 300 Balance 2995 200 - Medications Medications: Current Medications Docusate Sodium (Colace) 100 mg PO BID [facility] Last Admin: 03/09/18 18:11 Dose: Not Given Hydromorphone/Sodium Chloride (Dilaudid General Medical Practitioner) 6 mg IV Q4H PRN; Protocol PRN Reason: Pain, moderate (4-7) Last Admin: 03/09/18 13:45 Dose: 0.2 mg Lactated Ringer's (Lactated Ringer's) 1,000 mls @ 125 mls/hr IV .Q8H [facility] Last Admin: 03/09/18 20:30 Dose: 125 mls/hr Ibuprofen (Motrin Tab) 600 mg PO Q6H PRN PRN Reason: Pain, Mild (1-3) Naloxone HCl (Narcan) 0.1 mg IVP Q2M PRN PRN Reason: Opiate reversal Oxycodone/Acetaminophen (Percocet 5/325 Mg Tab) 1 tab PO Q4H PRN PRN Reason: Pain, moderate (4-7) Stop: 03/12/18 11:34 Oxycodone/Acetaminophen (Percocet 5/325 Mg Tab) 2 tab PO Q4H PRN PRN Reason: Pain, severe (8-10) Stop: 03/12/18 11:34 Multivit/Folic Acid/Iron () 1 tab PO DAILY [facility] Simethicone (Mylicon Chew Tab) 80 mg PO QID [facility] Last Admin: 03/09/18 22:20 Dose: Not Given - Labs Labs: 03/10/18 06:25 Assessment and Plan - Assessment and Plan (Free Text) Assessment: s/p dario Plan: pod#1 s/p hystrectomy cbc liquid deit 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
[2018-03-10] MEDS: Prenatal Multivit/Folic Acid/Iron Tab PO SCH (09:23)
[2018-03-10] MEDS: Simethicone 80 mg Chewtab PO SCH ×4 (09:23→22:56)
[2018-03-10] MEDS: Oxycodone/Acetaminophen 5/325 mg Tab PO PRN (09:24)
--- NOTE | 2018-03-11 07:48 | OP ---
PROCEDURE DATE: 03/09/2018 PREOPERATIVE DIAGNOSES: A 48-year-old with abnormal uterine bleeding and fibroid uterus. POSTOPERATIVE DIAGNOSES: A 48-year-old with abnormal uterine bleeding and fibroid uterus. SURGEON: Jose Gonzales MD MEDICAL ASSISTANT PRN: Dr. Clemons, who was present throughout the surgery. PROCEDURE PERFORMED: Exploratory laparotomy, supracervical hysterectomy, left salpingectomy, right salpingo-oophorectomy. COMPLICATIONS: None. ESTIMATED BLOOD LOSS: 400 mL. TYPE OF ANESTHESIA: General. DESCRIPTION OF PROCEDURE: After informed consent was obtained, the patient was brought to the operating room, placed on the table. General anesthesia was given. Once the anesthesia was found to be adequate, the patient was prepped and draped in the normal sterile fashion. At the site of the previous skin incision, an incision was made with a knife, the subcutaneous cut with a Bovie. The fascia was excised on both the sides using curved Granado scissors. The fascia was from the site of the umbilicus and then at the rectus muscle. Rectus muscles . The peritoneum was incised, and we went into the abdominal cavity. The bowel was then the uterus was exteriorized. It was found that there was a fibroid. After that, there the right ovary was stuck with the uterus. Decision was to do an oophorectomy. The left ovary looked normal. The left . After that, further round ligament on the right side was taken and the broad ligament and peritoneum was then and after that, the ovary on the right side and right utero-ovarian ligament was taken. Then after that, the uterine artery and bladder was exteriorized. After that, right uterine ovary and artery was taken out. The same procedure was done on the left side. After that, the left ovary was taken out and the bladder was pushed down with ring forceps. After that, the right uterine arteries on both the sides was taken out on left side, the went up to the cervix. After that, it was hemostatic. Then after that, supracervical incision was made. It was sent to pathology made. Then the cervix was closed using fashion. After that, the tube on the left side was taken out using the Ethicon right side, it was also removed. A lot of irrigation was done, it was hemostatic. The stump was not bleeding. After that, FloSeal was placed and then the Surgicel was placed. A lot of irrigation was done and found to be hemostatic. All the laps were removed. Peritoneum was closed using 2-0 Vicryl in running interlocking fashion. Muscle was closed using 2-0 Vicryl in running interlocking fashion. The fascia was closed using #1 Vicryl in running interlocking fashion. Subcutaneous tissue was closed with 0 Vicryl in interrupted fashion. Skin was closed using 3-0 Monocryl straight needle. The patient tolerated the procedure well. Lap, sponge, and instrument count were correct x2. Jose Gonzales MD
[2018-03-11] MEDS: Prenatal Multivit/Folic Acid/Iron Tab PO SCH (10:29)
[2018-03-11] MEDS: Simethicone 80 mg Chewtab PO SCH ×4 (10:29→21:51)
[2018-03-11] MEDS: Oxycodone/Acetaminophen 5/325 mg Tab PO PRN (21:55)
[2018-03-12 08:36] VITALS: BP 117/79; PULSE 79; RESP 18; TEMP 98.8; O2SAT 98
[2018-03-12] MEDS: Simethicone 80 mg Chewtab PO SCH (09:58)
[2018-03-12] MEDS: Prenatal Multivit/Folic Acid/Iron Tab PO SCH (09:58)
== END 2018-03-12 12:00 | disposition home or self-care (01) | DRG 359 ==
LOC: C.9S 06:10 → C.4M 11:37
PROVIDERS: ADMIT Obstetrics & Gynecology; ATTEND Obstetrics & Gynecology
PROC: 0UT00ZZ Resection of Right Ovary, Open Approach (ICD-10-PCS; 2018-03-09)
PROC: 0UT70ZZ Resection of Bilateral Fallopian Tubes, Open Approach (ICD-10-PCS; 2018-03-09)
PROC: 0UT90ZL Resection of Uterus, Supracervical, Open Approach (ICD-10-PCS; principal; 2018-03-09 07:45)
DX: D25.2 Subserosal leiomyoma of uterus (principal); N83.02 Follicular cyst of left ovary; N93.9 Abnormal uterine and vaginal bleeding, unspecified